=== PATIENT | male | born 1965 | race Caucasian/White ===

== ENCOUNTER 2021-04-14 18:56 | Emergency (ER) | payer SELFPAY ==
[2021-04-14] MEDS ORDERED: Orphenadrine Citrate 60 MG/2 ML VIAL ONE (19:11)
[2021-04-14] MEDS ORDERED: Ketorolac Tromethamine 30 MG/ML VIAL ONE (19:49)
[2021-04-14] MEDS ORDERED: Ondansetron ODT 4 MG TAB ONE (19:49)
[2021-04-14 20:06] LABS: Hemoglobin 12.9 g/dL (14.0-18.0); Mean Corpuscular HGB CONC 32.7 g/dL (32.0-36.0); Mean Corpuscular Hemoglobin 33.1 pg (27.0-31.0); Mean Corpuscular Volume 101.1 fL (78.0-98.0); Mean Platelet Volume 10.6 fL (7.4-10.4); Platelet Count 60 thou/uL (130-400); RBC Distribution Width 13.6 % (11.5-14.5); White Blood Cell (WBC) Count 6.7 thou/uL (4.8-10.8)
[2021-04-14 20:16] LABS: ALT (SGPT) 38 U/L (8-55); AST (SGOT) 38 U/L (5-34); Albumin 2.9 g/dL (3.5-5.0); Alkaline Phosphatase 143 U/L (40-110); Anion Gap 11 mmol/L (10-20); BUN (Urea Nitrogen) 13 mg/dL (8.4-25.7); Bilirubin, Total 1.9 mg/dL (0.2-1.2); Calc. Creatinine Clearance 0 mL/min (70-130); Calcium 8.1 mg/dL (7.8-10.44); Carbon Dioxide 22 mmol/L (22-29); Chloride 100 mmol/L (98-107); Globulin 3.7 g/dL (2.4-3.5); Glucose 92 mg/dL (70-105); Potassium 4.2 mmol/L (3.5-5.1); Protein, Total 6.6 g/dL (6.0-8.3); Sodium 129 mmol/L (136-145)
[2021-04-14 20:37] LABS: Band 4 % (5-11); Lymphocytes 7 % (21-51); MDiff Complete? YES; Monocytes 8 % (0-10); Neutrophil 81 % (42-75); Platelet Morphology Comment Appears Decreased; RBC Morphology Normal
[2021-04-14 21:29] LABS: INR-International Normal Ratio 1.3; PTT 34.1 sec (22.9-36.1)
[2021-04-14] MEDS ORDERED: Morphine 4 MG/ML VIAL ONE (22:03)
[2021-04-14 22:09] LABS: Bilirubin Negative (Negative); Blood, Urine Moderate (Negative); Clarity Clear (Clear); Glucose, Urine (Dipstick) Negative (Negative); Ketone, Urine Negative (Negative); Leukocyte Trace (Negative); Nitrite Negative (Negative); Protein, Urine (Dipstick) Negative (Neg-Trace); Urobilinogen > or = 8.0 mg/dL (Less than 2)
[2021-04-14 22:17] LABS: Bacteria/HPF Rare-Few HPF (None Seen); Squamous Epithelial 0-3 HPF (0-3)
[2021-04-14 22:27] LABS: Amphetamine Detected (NotDetected); Barbiturates Screen Not Detected (NotDetected); Benzodiazepine Screen Not Detected (NotDetected); Cocaine Metabolite Screen Not Detected (NotDetected); Methadone Not Detected (NotDetected); Methamphetamine Detected (NotDetected); Opiate Screen Not Detected (NotDetected); Oxycodone Screen Not Detected (NotDetected); Phencyclidine (PCP) Not Detected (NotDetected); THC/Cannabinoid Screen Detected (NotDetected); Tricyclic Screen Not Detected (NotDetected)
[2021-04-14 22:28] LABS: Medtox Control Line Valid? VALID (VALID)
== END 2021-04-14 22:07 | disposition short-term general hospital (02) ==
LOC: MADERS 18:56
DX: M46.26 Osteomyelitis of vertebra, lumbar region (principal); M46.46 Discitis, unspecified, lumbar region; K70.30 Alcoholic cirrhosis of liver without ascites; D69.6 Thrombocytopenia, unspecified
CPT/HCPCS: 72131; 80053; 80306; 81003; 81015; 83605; 85025; 85610; 85730; 86140; 87040; 87077; 87149; 96372; 96374; J1885; J2270; J2360; Q0162

== ENCOUNTER → 2021-04-19 | Day surgery (SDC) | payer SELFPAY ==
[~2021-04-19] MED LIST: Lidocaine 1% 20 ML MDV FS SCH; Lidocaine 1% 20 ML MDV ONE; Sterile Water 10 ML ONE; cefTRIAXone\\ROCEPHIN 1 GM VIAL IM SCH; cefTRIAXone\\ROCEPHIN 1 GM VIAL ONE; cefTRIAXone\\ROCEPHIN 2 GM VIAL IM SCH; cefTRIAXone\\ROCEPHIN 2 GM VIAL ONE
== END ==
LOC: MADER/OP 11:13
PROVIDERS: ATTEND Internal Medicine Infectious Disease
DX: M86.9 Osteomyelitis, unspecified (principal); I10 Essential (primary) hypertension; M47.812 Spondylosis without myelopathy or radiculopathy, cervical region; B18.2 Chronic viral hepatitis C; Z87.891 Personal history of nicotine dependence; Z79.2 Long term (current) use of antibiotics
CPT/HCPCS: J0696

== ENCOUNTER → 2021-04-20 | Day surgery (SDC) | payer SELFPAY ==
[~2021-04-20] MED LIST changes: -Lidocaine 1% 20 ML MDV FS SCH; -Sterile Water 10 ML ONE; -cefTRIAXone\\ROCEPHIN 1 GM VIAL IM SCH; -cefTRIAXone\\ROCEPHIN 1 GM VIAL ONE; -cefTRIAXone\\ROCEPHIN 2 GM VIAL IM SCH
== END ==
LOC: MADLAB 10:29
PROVIDERS: ATTEND Internal Medicine Infectious Disease
DX: M86.9 Osteomyelitis, unspecified (principal); I10 Essential (primary) hypertension; B18.2 Chronic viral hepatitis C; G89.29 Other chronic pain; M54.9 Dorsalgia, unspecified; M48.061 Spinal stenosis, lumbar region without neurogenic claudication; M47.812 Spondylosis without myelopathy or radiculopathy, cervical region; K74.60 Unspecified cirrhosis of liver; Z87.891 Personal history of nicotine dependence; Z79.2 Long term (current) use of antibiotics; Z79.899 Other long term (current) drug therapy
CPT/HCPCS: 96372; J0696

== ENCOUNTER 2022-02-06 17:32 | Emergency (ER) | payer SELFPAY ==
[2022-02-06] MEDS ORDERED: Iopamidol 370 76% 100 ML VIAL FS ONE (17:33)
[2022-02-06 18:35] LABS: INR-International Normal Ratio 1.9; PTT 37.5 sec (22.9-36.1); Prothrombin Time 22.1 sec (12.0-14.7)
[2022-02-06 18:44] LABS: #Basophils 0.1 thou/uL (0.0-0.2); #Eosinphils 0.2 thou/uL (0.0-0.7); #Lymphocytes 0.9 thou/uL (1.20-3.40); #Monocytes 0.8 thou/uL (0.11-0.59); #Neutrophils 6.3 thou/uL (1.40-6.50); %Basophils 1.4 % (0.0-1.0); %Eosinophils 2.8 % (0.0-10.0); %Lymphocytes 10.4 % (21.0-51.0); %Monocytes 10.1 % (0.0-10.0); %Neutrophils 75.2 % (42.0-75.0); Hemoglobin 12.1 g/dL (14.0-18.0); MDiff Complete? YES; Macrocytosis SLIGHT = 6-15 cells (100X) (0-5/hpf); Mean Corpuscular HGB CONC 34.9 g/dL (32.0-36.0); Mean Corpuscular Hemoglobin 36.5 pg (27.0-31.0); Mean Corpuscular Volume 104.7 fL (78.0-98.0); Mean Platelet Volume 5.6 fL (7.4-10.4); Platelet Count 114 thou/uL (130-400); Platelet Morphology Comment Appears Decreased; Polychromasia SLIGHT = 2-3 cells (100X) (0-2/hpf); RBC Distribution Width 14.5 % (11.5-14.5); Red Blood Cell (RBC) Count 3.31 mill/uL (4.70-6.10); White Blood Cell (WBC) Count 8.3 thou/uL (4.8-10.8)
[2022-02-06 18:46] LABS: ALT (SGPT) 15 U/L (8-55); AST (SGOT) 33 U/L (5-34); Albumin 2.1 g/dL (3.5-5.0); Alkaline Phosphatase 99 U/L (40-110); Anion Gap 13 mmol/L (10-20); BUN (Urea Nitrogen) 13 mg/dL (8.4-25.7); Bilirubin, Total 6.4 mg/dL (0.2-1.2); CK (CPK) 42 U/L (30-200); Calc. Creatinine Clearance 0 mL/min (70-130); Carbon Dioxide 20 mmol/L (22-29); Chloride 98 mmol/L (98-107); Globulin 4.6 g/dL (2.4-3.5); Glucose 97 mg/dL (70-105); Lipase 36 U/L (8-78); Potassium 3.5 mmol/L (3.5-5.1); Protein, Total 6.7 g/dL (6.0-8.3); Sodium 127 mmol/L (136-145)
[2022-02-06] MEDS ORDERED: Vancomycin HCl 750 MG VIAL ONE (19:03)
[2022-02-06] MEDS ORDERED: Sodium Chloride 0.9% 100 ML ONE (19:03)
[2022-02-06] MEDS ORDERED: Sodium Chloride 0.9% 250 ML 250 ML ONE (19:03)
[2022-02-06] MEDS ORDERED: Cefepime 2 GM VIAL ONE (19:03)
[2022-02-06 23:26] LABS: Bilirubin Moderate (Negative); Blood, Urine Negative (Negative); Clarity Clear (Clear); Glucose, Urine (Dipstick) 100 mg/dL (Negative); Ketone, Urine Negative (Negative); Leukocyte Negative (Negative); Nitrite Negative (Negative); Protein, Urine (Dipstick) Negative (Neg-Trace); Specific Gravity, Urine 1.015 (1.005-1.030); Urobilinogen > or = 8.0 mg/dL (Less than 2)
== END 2022-02-06 22:59 | disposition short-term general hospital (02) ==
LOC: MADERS 17:32
DX: K72.90 Hepatic failure, unspecified without coma (principal); E87.1 Hypo-osmolality and hyponatremia; R00.0 Tachycardia, unspecified; I10 Essential (primary) hypertension; F17.210 Nicotine dependence, cigarettes, uncomplicated; Z87.19 Personal history of other diseases of the digestive system
CPT/HCPCS: 36415; 70450; 71045; 74177; 80053; 81003; 82140; 82550; 83605; 83690; 84484; 85025; 85610; 85730; 87040; 93005; 96365; 96366; 96367; J0692; J3370; J3490; J7050; Q9967